=== PATIENT | female | born 1950 | race Caucasian/White ===

== ENCOUNTER 2023-02-13 10:11 | Inpatient (IN) | payer OTHER, MEDICARE ==
[~2023-02-13] VITALS: Ht 170.2 cm; Wt 69.5 kg
[~2023-02-13 10:11] MED LIST: Naprosyn500 MG PO; Veetids 500500 MG PO
[2023-02-13] MEDS ORDERED: Percocet 5-3251 EACH PO (16:25)
[2023-02-14 02:17] LABS: Albumin, Blood 3.2 g/dL (3.4-5.0); Albumin/Globulin Ratio 1.1 (0.8-1.8); Bilirubin, Total 0.3 mg/dL (0.1-1.0); Bun/Creatinine Ratio 23.9 (12.0-20.0); Calcium, Blood 8.2 mg/dL (8.5-10.1); Creatinine, Blood 0.55 mg/dL (0.40-1.00); Globulin, Blood 2.9 g/dL (2.2-4.0); Total Protein, Blood 6.1 g/dL (6.4-8.2)
[2023-02-14 02:45] LABS: BASOPHILS ABSOLUTE AUTO 0.04 K/mm3 (0.00-0.23); BASOPHILS PERCENT AUTO 0 % (0-2); EOSINOPHILS ABSOLUTE AUTO 0.15 K/mm3 (0.00-0.68); EOSINOPHILS PERCENT AUTO 2 % (0-6); Hematocrit 28.4 % (33.0-51.0); Hemoglobin 7.6 g/dL (11.5-16.0); IMMATURE GRAN ABSOLUTE AUTO 0.02 K/mm3 (0.00-0.10); IMMATURE GRAN PERCENT AUTO 0 % (0-1); LYMPHOCYTES ABSOLUTE AUTO 1.23 K/mm3 (0.84-5.20); LYMPHOCYTES PERCENT AUTO 14 % (21-46); MONOCYTES ABSOLUTE AUTO 0.91 K/mm3 (0.16-1.47); MONOCYTES PERCENT AUTO 10 % (4-13); Mean Corpuscular HGB 17.7 pg (26.0-34.0); Mean Corpuscular HGB Conc 26.8 g/dL (31.5-36.5); Mean Corpuscular Volume 66 fL (80-100); NEUTROPHILS ABSOLUTE AUTO 6.74 K/mm3 (1.96-9.15); NEUTROPHILS PERCENT AUTO 74 % (41-73); Platelet Count 224 K/mm3 (150-400); RDW Coefficient Variation 19.9 % (11.7-14.2); RDW Standard Deviation 46.4 fL (35.1-46.3); Red Blood Cell Count 4.29 M/mm3 (3.80-5.20); White Blood Cell Count 9.09 K/mm3 (4.00-11.30)
[2023-02-14 03:36] VITALS: BP 151/52
--- NOTE | 2023-02-14 04:34 | NUR ---
PT ARRIVED TO UNIT 0400, 1L NC SATS IN UPPER 90'S, NO COMPLIANTS OF PAIN, ICE AND ELEVATION OF LEFT ANKLE FRACTURE, DUAGHTER AT BEDSIDE, CONTINUE POC
[2023-02-14 07:42] VITALS: BP 131/55
[2023-02-14 10:56] LABS: BASOPHILS ABSOLUTE AUTO 0.05 K/mm3 (0.00-0.23); BASOPHILS PERCENT AUTO 1 % (0-2); EOSINOPHILS ABSOLUTE AUTO 0.15 K/mm3 (0.00-0.68); EOSINOPHILS PERCENT AUTO 2 % (0-6); Hematocrit 26.3 % (33.0-51.0); Hemoglobin 7.2 g/dL (11.5-16.0); IMMATURE GRAN ABSOLUTE AUTO 0.03 K/mm3 (0.00-0.10); IMMATURE GRAN PERCENT AUTO 0 % (0-1); LYMPHOCYTES ABSOLUTE AUTO 1.34 K/mm3 (0.84-5.20); LYMPHOCYTES PERCENT AUTO 18 % (21-46); MONOCYTES ABSOLUTE AUTO 0.71 K/mm3 (0.16-1.47); MONOCYTES PERCENT AUTO 10 % (4-13); Mean Corpuscular HGB 18.1 pg (26.0-34.0); Mean Corpuscular HGB Conc 27.4 g/dL (31.5-36.5); Mean Corpuscular Volume 66 fL (80-100); Mean Platelet Volume 9.2 fL (9.1-12.4); NEUTROPHILS ABSOLUTE AUTO 5.23 K/mm3 (1.96-9.15); NEUTROPHILS PERCENT AUTO 70 % (41-73); Platelet Count 203 K/mm3 (150-400); RDW Coefficient Variation 19.6 % (11.7-14.2); RDW Standard Deviation 45.5 fL (35.1-46.3); Red Blood Cell Count 3.98 M/mm3 (3.80-5.20); White Blood Cell Count 7.51 K/mm3 (4.00-11.30)
[2023-02-14 11:17] LABS: Albumin, Blood 3.1 g/dL (3.4-5.0); Bilirubin, Total 0.5 mg/dL (0.1-1.0); Bun/Creatinine Ratio 18.3 (12.0-20.0); Calcium, Blood 8.1 mg/dL (8.5-10.1); Creatinine, Blood 0.49 mg/dL (0.40-1.00); Globulin, Blood 3.1 g/dL (2.2-4.0); Potassium, Blood 3.5 mmol/L (3.5-5.5); Total Protein, Blood 6.2 g/dL (6.4-8.2)
[2023-02-14 16:34] VITALS: BP 150/60
--- NOTE | 2023-02-14 17:14 | NUR ---
SHIFT SUMMARY MS LEMOS IS A&OX4. LEFT FOOT IN A CAST. ELEVATED ON PILLOWS. PAIN CONTROLLED ON PERCOCET THIS AFTERNOON ~ 1 TABLET Q4HRS HELPING PAIN. ATTEMPTED TO WEAN OFF 1L OXYGEN NASAL CANULA. SEE VS CHARTED; O2 SAT DROPPED TO MID 80S ON ROOM AIR. PT IS ON ROOM AIR AT BASELINE. DAUGHTER AT BEDSIDE THROUGHOUT THE DAY. PT NERVOUS ABOUT PAIN AND FALLING. FALL PRECAUTIONS REITERATED TO PT AND EDUCATED ABOUT USING CALL LIGHT AND NOT GETTING UP TO THE BEDSIDE COMMODE WITHOUT STAFF ASSISTANCE. PT VERBALISED UNDERSTANDING AND HAS BEEN GETTING UP WITH ASSISTANCE TO BSC. SHE HAS DECLINED PHYSICAL THERAPY AND SAID THAT SHE IS CONCERNED ABOUT PAIN AND MOBILITY UNTIL SHE SEES AN ORTHOPEDIC DOCTOR. ON TELEMETRY IN SR, HR ELEVATED TO 170 FOR 4-5 SECONDS PER [employer], THEN TO 120. DR MENDENHALL NOTIFIED. BED LOW, CALL LIGHT IN REACH.
[2023-02-14 20:09] VITALS: BP 163/62
[2023-02-15] VITALS (13 sets, daily range): BP systolic 88–165; BP diastolic 44–65
[2023-02-15 05:11] LABS: Hematocrit 24.2 % (33.0-51.0); Hemoglobin 6.3 g/dL (11.5-16.0); Mean Corpuscular HGB 17.5 pg (26.0-34.0); Mean Corpuscular Volume 67 fL (80-100); Platelet Count 194 K/mm3 (150-400); RDW Coefficient Variation 19.3 % (11.7-14.2); White Blood Cell Count 9.54 K/mm3 (4.00-11.30)
[2023-02-15 05:17] LABS: Mean Platelet Volume 10.7 fL (9.1-12.4)
[2023-02-15 05:42] LABS: Percent Saturation 2.5 % (15.0-50.0)
--- NOTE | 2023-02-15 08:09 | NUR ---
CALL THIS AM FROM . ORDER RECEIVED FOR 2 UNITS PRBC'S TRANSFUSE AND TYPE AND SCREEN. HGB 6.3. BLOOD CONSENT SIGNED WITH PATIENT. DAUGHTER HAS CONCERNS ABOUT RECEIVING BLOOD FROM SOMEONE THAT MAY HAVE BEEN VACCINATED FOR COVID. BLOOD BANK CALLED BY THIS RN AND NO WAY TO TELL IF DONOR HAD BEEN VACCINATED. PATIENT WANTS TO HOLD BLOOD FOR NOW AND SPEAK WITH HER SON AND DAUGHTER ABOUT WHETHER OR NOT RECEIVE THIS BLOOD. EDUCATION IS PROVIDED ABOUT RISKS AND BENEFITS. FAMILY WANTS TO SPEAK WITH ABOUT ALTERNATIVES TO RECEIVING BLOOD PRODUCTS. NOTIFIED.
--- NOTE | 2023-02-15 19:16 | NUR ---
SHIFT SUMMARY; PATIENT RECEIVED 2 UNITS PRBC'S TODAY FOR A HEMOGLOBIN OF 6.3. SHE TOLERATED WELL. HER RHYTHM WAS AFIB WITH RVR AT 130 TO 150. SHE CONVERTED TO NSR. FAMILY REMAINS AT BEDSIDE THROUGHOUT THE DAY. PATIENT HAS LEFT ANKLE ELEVATED. SHE IS CONCERNED THAT SHE HAS AN APPONTMENT WITH ORTHO AT 0830 IN THE AM. REPORT TO ONCMETHODIST JENNIE EDMUNDSON SHIFT
[2023-02-16 01:17] VITALS: BP 150/55
[2023-02-16 05:20] LABS: Hemoglobin 9.3 g/dL (11.5-16.0)
[2023-02-16 07:50] VITALS: BP 173/79
[2023-02-16 10:46] VITALS: BP 147/62
[2023-02-16 16:34] VITALS: BP 154/67
--- NOTE | 2023-02-16 18:51 | NUR ---
PATIENT IS ALERT AND ORIENTED AND COOPERATIVE WITH CARE. ON 1.5L O2 VIS NC. PATIENT USES THE [facility] TO TRANSFER TO [facility]. HER DAUGHTER HAS BEEN AT THE BEDSIDE THROUGHOUT THE DAY. PATIENT IS EAGER TO SPEAK WITH THE [facility]RAY[facility] PAINTER IN THE MORNING. DR. VALENZUELA HAS BEEN CONSULTED. WILL CONTINUE TO MONITOR
[2023-02-16 19:51] VITALS: BP 165/60
[2023-02-17 04:12] VITALS: BP 135/66
--- NOTE | 2023-02-17 05:26 | NUR ---
SHIFT SUMMARY. RECEIVED PT FROM PREVIOUS NURSE AT ABOUT 0345 HE WAS GOING HOME DUE TO CENSUS. PT HAS BEEN SLEEPING SINCE THEN OTHER THAN REQUESTING PAIN MEDICATIONS AT 0400. SLEEPING SINCE PAIN MEDICATION ADMINISTRATION. AOX4, PLEASANT AND COOPERATIVE WITH CARE FOR MED PASS. DAUGHTER IN ROOM. NO FURTHER COMPLAINTS, REPORTS, OR QUESTIONS FROM PT THUS FAR. CONTINUING TO MONITOR. BED LOCKED IN LOWEST POSITION. CALL LIGHT LEFT WITHIN REACH.
[2023-02-17 06:40] LABS: Albumin, Blood 2.7 g/dL (3.4-5.0); Albumin/Globulin Ratio 0.9 (0.8-1.8); Bilirubin, Total 0.3 mg/dL (0.1-1.0); Bun/Creatinine Ratio 13.5 (12.0-20.0); Calcium, Blood 8.5 mg/dL (8.5-10.1); Creatinine, Blood 0.52 mg/dL (0.40-1.00); Globulin, Blood 3.1 g/dL (2.2-4.0); Total Protein, Blood 5.8 g/dL (6.4-8.2)
[2023-02-17 07:37] VITALS: BP 138/59
[2023-02-17 09:24] LABS: Hematocrit 31.1 % (33.0-51.0)
[2023-02-17 15:27] VITALS: BP 149/63
[2023-02-17] MEDS ORDERED: FERSU300 PO (16:26)
[2023-02-17] MEDS ORDERED: DOCU100 PO (16:26)
[2023-02-17] MEDS ORDERED: Acerola C500 MG PO (16:26)
[2023-02-17] MEDS ORDERED: ALBU90OI INH (16:27)
[2023-02-17] MEDS ORDERED: Percocet 5-3251 EACH PO (16:27)
[2023-02-17] MEDS ORDERED: Aspir 8181 MG PO (17:40)
--- NOTE | 2023-02-17 19:22 | NUR ---
pt discharge reviewd with pt. and husb. she verbalized understanding meds and inst. daughter took her pn rx to [facility] at her request. tele removed and iv removed by aide. dr chapman request she hold asprin until after foot surg. placed inst on discharge and discussed with pt. pt wheeled to door at 1830
[2023-02-18 11:09] LABS: T-TRANSGLUTAMINASE (TTG) IGA <2 U/mL (0-3); T-TRANSGLUTAMINASE (TTG) IGG <2 U/mL (0-5)
== END 2023-02-17 19:16 | disposition home health service (06) | DRG 562 ==
LOC: ER 10:11 → ERHOLD 10:12 → MEDS 10:12 → ENPENDDIS 02-17 15:45 → MEDS 02-17 19:16
PROVIDERS: Internal Medicine; Student in an Organized Health Care Education/Training Program; ADMIT Internal Medicine
PROC: 2W3RX1Z Immobilization of Left Lower Leg using Splint (ICD-10-PCS; 2023-02-13)
PROC: 2W6 Placement, Anatomical Regions, Traction (ICD-10-PCS; 2023-02-13)
PROC: 30233N1 Transfusion of Nonautologous Red Blood Cells into Peripheral Vein, Percutaneous Approach (ICD-10-PCS; principal; 2023-02-15)
DX: S82.852A Displaced trimalleolar fracture of left lower leg, initial encounter for closed fracture (principal); J96.01 Acute respiratory failure with hypoxia; J44.9 Chronic obstructive pulmonary disease, unspecified; F41.9 Anxiety disorder, unspecified; I48.91 Unspecified atrial fibrillation; D50.9 Iron deficiency anemia, unspecified; F17.210 Nicotine dependence, cigarettes, uncomplicated; W01.0XXA Fall on same level from slipping, tripping and stumbling without subsequent striking against object, initial encounter; Z79.2 Long term (current) use of antibiotics; Z79.1 Long term (current) use of non-steroidal anti-inflammatories (NSAID); Y92.009 Unspecified place in unspecified non-institutional (private) residence as the place of occurrence of the external cause
CPT/HCPCS: 27818; 36415; 36430; 71045; 73600; 73610; 73630; 73700; 76377; 80053; 82728; 83516; 83540; 83550; 85014; 85018; 85025; 85027; 86364; 86850; 86900; 86901; 86923; 94640; 94664; 94760; 94761; 96372; 96374-59; 96375-59; 96376; 96376-59; 97110; 97116; 97161; 97165; 97530; 97535; 99285-25; 99406; A9270; G0378; J1170; J1650; J2060; J2405; J3010; J7030; P9016

== ENCOUNTER 2023-02-20 10:47 | Day surgery (SDC) | payer MEDICARE, OTHER ==
[~2023-02-20] VITALS: Ht 170.2 cm; Wt 70.0 kg
[~2023-02-20 10:47] MED LIST changes: +ALBU90OI INH; +Acerola C500 MG PO; +Aspir 8181 MG PO; +DOCU100 PO; +FERSU300 PO; +Percocet 5-3251 EACH PO
--- NOTE | 2023-02-20 12:22 | NUR ---
02/20/23 1222 Cony Montalvo LATE ENTRY: PATIENT REPORTED SHE HAS NOT YET STARTED TAKING ASPIRIN 81 MG SHE WAS INSTRUCTED TO NOT START TAKING IT UNTIL AFTER HER ANKLE SURGERY. 1135: DR HOLLIDAY IN TO SEE PATIENT AND DISCUSS HEALTH HX. 1148: PATIENT TRANSPORTED TO LARGER ROOM TO COMPLETE NERVE BLOCK PER ANESTHESIA. SITE AND CONSENTS VERIFIED WITH DR HOLLIDAY, DR ROSAS, AND PATIENT. 1150: ANESTHESIA DR HOLLIDAY AND DR ESCUDERO IN ROOM. PATIENT PLACED ON SPO2 MONITOR AND PLACED ON 3 LPM NASAL CANNULA. 1157: TIMEOUT COMPLETED. PROCEDURE START. PATIENT INCREASED TO 5 LPM OXYGEN VIA NASAL CANNULA. 1202: PATIENT HAS POOR SPO2 WAVEFORM, BUT DESATTING SO PATIENT ENCOURAGED TO TAKE DEEP BREATHS AND CHANGED TO POM MASK AT 10 LPM. 1203: PATIENT SPO2 WAVEFORM IMPROVED AND PATIENT'S SPO2 WAS 100%. 1206: NERVE BLOCK PROCEDURE COMPLETED. PATIENT REPOSITIONED FOR COMFORT. TITRATED DOWN TO 5 LPM OXYGEN.
--- NOTE | 2023-02-20 12:37 | NUR ---
02/20/23 1237 Laquita Gimenez BAG, PILLOW UNDER HEAD AND BETWEEN KNEES, ARMS SECURED ON PADDED ARM BOARDS. PATIENT POSITIONED SUPINE AND WILL BE TURNED LATERAL DURING CASE.
--- NOTE | 2023-02-20 14:52 | NUR ---
02/20/23 1452 Lina Pagan PT DESAT TO 83. PLACED ON O2 VIA MASK AT 15L. PTS O2 WENT UP TO 100. MONITORING PT AND WILL TAPER O2 DOWN TO DETERMINE TOLERANCE.
[2023-02-20 15:26] VITALS: BP 133/60
--- NOTE | 2023-02-20 15:35 | NUR ---
02/20/23 1535 Lina Pagan PT DEMONSTRATED USE OF INCENTIVE SPIROMETER 10X. PTS SATS WENT UP TO 97. DESAT AGAIN DOWN TO 86, BUT ENCOURAGED THE PT TO DEEP BREATHE AND COUGH, WHICH SEEMED TO CLEAR UP SOME CONGESTION AND PT IS NOW AT 97% ON NO SUPPLEMENTAL 02.
== END 2023-02-20 17:45 | disposition short-term general hospital (02) ==
LOC: ORSCSDS 10:47
DX: S82.852A Displaced trimalleolar fracture of left lower leg, initial encounter for closed fracture (principal); J44.9 Chronic obstructive pulmonary disease, unspecified; Z79.899 Other long term (current) drug therapy
CPT/HCPCS: A9270; C1713; J0171; J0690; J1100; J2250; J2405; J2704; J2795; J3010; J7120

== ENCOUNTER 2023-02-20 17:50 | Observation (INO) | payer MEDICARE, OTHER ==
[2023-02-20 18:00] VITALS: BP 151/51
[2023-02-20 18:34] VITALS: BP 159/52
--- NOTE | 2023-02-20 18:37 | NUR ---
POST OP: REPORT RECEIVED FROM DAY SURGERY RN. PT IS DIRECT ADMIT FOR OBSERVATION. PT TO UNIT AT 1800. PT IS A/O, VSS. CURRENT ON 5L AND SP02 100%. 02 DECREASED TO 2L AND PT 97%. NO RESP DISTRESS, LUNGS CLEAR THROUGH OUT. PT NOT COMPLAINING OF PAIN OR SOB AT THIS TIME. SURGICAL SITE TO L ANKLE WNL, PT UNABLE TO WIGGLE TOES NOW DUE TO SPINAL BLOCK. CAP REFILL WNL. RT NOTIFIED THAT PT USING O2. WILL CTM
[2023-02-20 19:51] VITALS: BP 150/61
[2023-02-20 23:45] VITALS: BP 158/58
[2023-02-21 04:48] LABS: BASOPHILS ABSOLUTE AUTO 0.04 K/mm3 (0.00-0.23); BASOPHILS PERCENT AUTO 0 % (0-2); EOSINOPHILS PERCENT AUTO 0 % (0-6); IMMATURE GRAN ABSOLUTE AUTO 0.05 K/mm3 (0.00-0.10); IMMATURE GRAN PERCENT AUTO 1 % (0-1); LYMPHOCYTES ABSOLUTE AUTO 0.99 K/mm3 (0.84-5.20); LYMPHOCYTES PERCENT AUTO 9 % (21-46); MONOCYTES ABSOLUTE AUTO 0.72 K/mm3 (0.16-1.47); MONOCYTES PERCENT AUTO 7 % (4-13); Mean Corpuscular HGB 20.6 pg (26.0-34.0); Mean Corpuscular Volume 71 fL (80-100); NEUTROPHILS ABSOLUTE AUTO 9.25 K/mm3 (1.96-9.15); NEUTROPHILS PERCENT AUTO 84 % (41-73); Platelet Count 237 K/mm3 (150-400); RDW Coefficient Variation 25.2 % (11.7-14.2); RDW Standard Deviation 62.5 fL (35.1-46.3); Red Blood Cell Count 4.37 M/mm3 (3.80-5.20); White Blood Cell Count 11.05 K/mm3 (4.00-11.30)
[2023-02-21 07:19] VITALS: BP 135/59
== END 2023-02-21 14:51 | disposition home or self-care (01) ==
LOC: SURS 17:50
PROVIDERS: ADMIT Hospitalist
DX: J96.01 Acute respiratory failure with hypoxia (principal); I48.0 Paroxysmal atrial fibrillation; J44.9 Chronic obstructive pulmonary disease, unspecified; F17.210 Nicotine dependence, cigarettes, uncomplicated; Z79.82 Long term (current) use of aspirin; Z79.899 Other long term (current) drug therapy
CPT/HCPCS: 36415; 85025; 94760; A9270; C1713; G0378; G0379; J0171; J0690; J1100; J2250; J2405; J2704; J2795; J3010; J7120

== ENCOUNTER 2025-04-16 17:44 | Emergency (ER) | payer OTHER ==
[~2025-04-16] VITALS: Ht 167.6 cm; Wt 68.0 kg
[2025-04-16 19:00] VITALS: BP 137/64
[2025-04-16] MEDS ORDERED: RX Prepack 6 Tabs Oxycodone 5mg UD ONE (19:05)
== END 2025-04-16 19:14 | disposition home or self-care (01) ==
LOC: ER 17:44
DX: S20.211A Contusion of right front wall of thorax, initial encounter (principal); J44.9 Chronic obstructive pulmonary disease, unspecified; F17.210 Nicotine dependence, cigarettes, uncomplicated; V89.2XXA Person injured in unspecified motor-vehicle accident, traffic, initial encounter
CPT/HCPCS: 71046; 99283-25; A9270